=== PATIENT | female | born 1960 | race Caucasian/White ===

== ENCOUNTER → 2016-07-28 | Outpatient (CLI) | payer BC ==
[~2016-07-28] MED LIST: HYDR25TA4 PO; NAPR1TAB9 PO
--- NOTE | 2016-07-28 14:59 | DIAGNOSTIC IMAGING REPORT ---
THYROID ULTRASOUND CLINICAL HISTORY: Nontoxic goiter. COMPARISON STUDY: None. TECHNIQUE: Sonography of the thyroid gland was performed. FINDINGS: The right thyroid lobe measures 4.8 x 1.2 x 1.8 cm and the left lobe measures 4 x 1.1 x 1.3 cm. The size of the gland is normal. The gland is slightly heterogeneous. Several small thyroid nodules are noted, the largest of which is a 1.1 x 0.6 x 0.8 cm hypoechoic nodule within the midpole the right lobe. This contains a few echogenic foci. IMPRESSION: 1. Several small thyroid nodules, none of which meet criteria for biopsy. A follow-up thyroid ultrasound in 1 year is recommended. 2. Normal size thyroid gland. Electronically signed by: Thompson Morales M.D. 07/28/2016 2:58 PM Dictated Date/Time: 07/28/2016 2:55 PM
== END | disposition home or self-care (01) ==
LOC: C.ULTR 14:32
PROVIDERS: ATTEND Nurse Practitioner
DX: E04.2 Nontoxic multinodular goiter (principal)

== ENCOUNTER → 2017-03-09 | Outpatient (CLI) | payer BC ==
--- NOTE | 2017-03-09 12:17 | DIAGNOSTIC IMAGING REPORT ---
L FOOT MIN 3 VIEWS ROUTINE CLINICAL HISTORY: S99.922A trauma. Pain. COMPARISON: None. DISCUSSION: The bones and joint spaces appear intact. There is no evidence of fracture, dislocation or bony disease. There is no evidence for soft tissue swelling. IMPRESSION: Negative study. The above report was generated using voice recognition software. It may contain grammatical, syntax or spelling errors. Electronically signed by: Mychal Ferguson M.D. 03/09/2017 12:15 PM Dictated Date/Time: 03/09/2017 12:10 PM
== END | disposition home or self-care (01) ==
LOC: C.RAD1850 11:56
PROVIDERS: ATTEND Physician Assistant
DX: S99.922A Unspecified injury of left foot, initial encounter (principal); X58.XXXA Exposure to other specified factors, initial encounter

== ENCOUNTER → 2017-07-25 | Outpatient (CLI) | payer OTHER ==
--- NOTE | 2017-07-25 16:14 | DIAGNOSTIC IMAGING REPORT ---
C-SPINE ROUTINE 4 OR 5 VIEWS CLINICAL HISTORY: UPPER BACK PAIN, NECK PAIN COMPARISON STUDY: 07/30/2015 FINDINGS: The prevertebral soft tissues are normal. There are moderate degenerative changes at the C5-6 and C6-7 levels with disc space narrowing and anterior posterior osteophyte formation. There is mild bilateral foraminal encroachment at these 2 levels due to uncinate spurring. No acute fractures or subluxations are visualized. IMPRESSION: Moderate degenerative changes the C5-6 and C6-7 levels. No acute fractures. Electronically signed by: Hermes Reis M.D. 07/25/2017 4:13 PM Dictated Date/Time: 07/25/2017 4:12 PM
--- NOTE | 2017-07-25 16:17 | DIAGNOSTIC IMAGING REPORT ---
THORACIC SPINE 3 VIEWS ROUTINE CLINICAL HISTORY: UPPER BACK PAIN, NECK PAIN COMPARISON STUDY: Chest CT May 07, 2012. FINDINGS: There are cholecystectomy clips. Alignment of the thoracic spine is anatomic. Vertebral body heights are maintained. No fracture or suspicious lesion is identified. There is mild multilevel disc space narrowing and osteophytosis of the thoracic spine. IMPRESSION: 1. No thoracic spine fracture or subluxation. 2. Mild multilevel degenerative disc disease of the thoracic spine. Electronically signed by: Thompson Morales M.D. 07/25/2017 4:16 PM Dictated Date/Time: 07/25/2017 4:15 PM
== END | disposition home or self-care (01) ==
LOC: C.RAD 14:52
PROVIDERS: ATTEND Nurse Practitioner Family
DX: M54.2 Cervicalgia (principal)